=== PATIENT | female | born 1955 | race Caucasian/White ===

== ENCOUNTER 2023-11-19 12:53 | Outpatient (AMB) | payer MEDICARE, SELFPAY ==
--- NOTE | 2023-11-19 12:55 | A.OFFPC_ITS ---
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 Insurance Marketing Specialist Required: No Accompanied by: Self / Same As Patient Allergies atorvastatin [From Lipitor] Allergy (Severe, Verified 11/19/23 13:42) Stomach Upset cephalexin [From Keflex] Allergy (Severe, Verified 11/19/23 13:42) Anaphylaxis Penicillins Allergy (Severe, Verified 11/19/23 13:09) Anaphylaxis Gtcrimj-MOS-IyI Reductase Inhibitor Allergy (Severe, Verified 11/19/23 13:42) Agitated Medication List - Last Reconciled 11/19/23 by Lety Ha MD aspirin (Adult Aspirin Regimen) 81 mg PO DAILY cholecalciferol (vitamin D3) 25 mcg PO DAILY cholecalciferol (vitamin D3) 25 mcg PO DAILY levothyroxine 50 mcg PO DAILY 90 days Tobacco use date assessed: 11/19/23 Fall risk assessment: No Falls in past year Last assessed Fall Risk: 11/19/23 Dental Screening Dental Screen Date: 11/19/23 Did you have a dental visit in the last 12 months?: Yes Did you have a dental problem in the last 6 months where you did not have access to dental care?: No Was dental information given to patient?: Patient has dentist HPI HPI Comments History of Present Illness Details The patient is a 68-year-old female with a medical history of CAD status post STEMI, hypothyroid, ulcerative colitis, hyperlipidemia, arthritis presenting for follow-up Cardiovascular: CAD status post STEMI 2020. She follows with Cardiology, Dr. Jordan on. She stopped her Plavix and rosuvastatin April due to side effects of intense muscle pain and constipation. She had not tolerated a previous course of rosuvastatin and Lipitor. She is not willing to try another statin for Repatha. She is currently taking aspirin. Urologic: No interval kidney stones: Followed by Urology. They referred her to Nephrology. Kidney ultrasound and KUB. KUB showed enlarged liver without details renal ultrasound showed nonobstructing calculus. LFTs are normal. She has made dietary changes over the past few years. Hypothyroid: On levothyroxine 50 mcg daily MSK: She has improved upper mid and -she believes this was in six months. back pain after working with a chiropractor GI: Ulcerative colitis has been quiet. GERD: Takes generic pepcid or zantac prn She pursues mammogram every 2 years -says this was done within the past 2 years Declines colonoscopy ROS CONSTITUTIONAL: Denies weight loss, fever and chills. HEENT: Denies changes in vision and hearing. RESPIRATORY: Denies SOB and cough. CV: Denies palpitations and CP GI: Denies abdominal pain, nausea, vomiting and diarrhea. : Denies dysuria and urinary frequency. MSK: Denies new myalgia and joint pain. SKIN: Denies rash and pruritus. NEUROLOGICAL: Denies headache PSYCHIATRIC: Denies recent changes in mood. PHYSICAL EXAM: GENERAL: Alert and oriented x 3. NAD EYES: EOMI. Anicteric. HENT: Moist mucous membranes. No scleral icterus. No cervical lymphadenopathy. LUNGS: Clear to auscultation bilaterally. CARDIOVASCULAR: Regular rate and rhythm. No murmur. No JVD. ABDOMEN: Soft, non-tender +bs EXTREMITIES: No edema. Non-tender. SKIN: No rashes or lesions. Warm. NEUROLOGIC: No focal neurological deficits. CN II-XII grossly intact PSYCHIATRIC: Cooperative. Appropriate mood and affect [facility] Social History Household Members: Significant Other Housing: Apartment 75 years or older and lives alone: No Alcohol intake: current Alcohol intake frequency: holidays/special occasions only Patient Tobacco Use Status: Never used Tobacco e-Cigarette/Vaping Use: Never Used service: No Current occupational status: retired Cognitive needs: No Hearing needs: No Vision needs: No Questionnaire PHQ-9 Over the last 2 weeks, how often have you been bothered by any of the following problems? 1. Little interest or pleasure in doing things: not at all 2. Feeling down, depressed, or hopeless: not at all 3. Trouble falling or staying asleep, or sleeping too much: not at all 4. Feeling tired or having little energy: not at all 5. Poor appetite or overeating: not at all 6. Feeling bad about yourself - or that you are a failure or have let yourself or your family down: not at all 7. Trouble concentrating on things, such as reading the newspaper or watching television: not at all 8. Moving or speaking so slowly that other people could have noticed. Or the opposite - being so fidgety or restless that you have been moving around a lot more than usual: not at all 9. Thoughts that you would be better off or of hurting yourself in some way: not at all Total score: 0 Depression Screening Interpretation: Negative (neg) Depression Screening Done: Yes 18714 - PHQ-9 Billing: Yes Source: Developed by Drs. Gildardo Mora, Farideh Roberson, Rikki Sanchez and colleagues, with an educational darling from [employer]. Thrive Questionnaire Date Thrive assessed: 11/19/23 I am a: Patient What is your living situation today?: I have a steady place to live Within the past 12 months, did the food you bought not last and you didn't have the money to get more?: Never true Within the past 12 months, did you worry whether your food would run out before you got money to buy more?: Never true Do you have trouble paying for medicines?: No Do you have trouble getting transportation to medical appointments?: No Do you have trouble paying your heating and electricity bill?: No Do you have trouble taking care of your child, family member or friend?: No Do you have trouble with day-to-day activities such as bathing, preparing meals, shopping, managing finances, etc.?: No Are you currently unemployed and looking for a job?: No Are you interested in more education?: No Please select the resources that you would like help with: None Currently or been in a relationship where the following occur: No concerns reported THRIVE Score: 0 RAMIRO-7 AMB Questionnaire RAMIRO-7 Date RAMIRO - 7 assessed: 11/19/23 Feeling nervous, anxious, or on edge: 0 = Not at all Not being able to stop or control worryin = Not at all Worrying too much about different things: 0 = Not at all Trouble relaxin = Not at all Being so restless that it is hard to sit still: 0 = Not at all Becoming easily annoyed or irritable: 0 = Not at all Feeling afraid as if something awful might happen: 0 = Not at all Total RAMIRO-7 score (0-4 normal; 5-9 mild; 10-14 moderate; 15-21 severe): 0 Source: Developed by Drs. Gildardo Mora, Farideh Roberson, Rikki Sanchez and colleagues, with an educational darling from [employer]. RAMIRO-7 Assessment Billing RAMIRO-7 Assessment Tool: RAMIRO-7 Assessment 47270 Physical exam (Primary Care) Vital Signs: Last Vital Signs Pulse 66 11/19/23 13:03 BP 110/56 L 11/19/23 13:03 Pulse Ox 96 11/19/23 13:03 Oxygen Delivery Method Room Air 11/19/23 13:03 BMI result Body Mass Index 25.3 Tobacco/Smoking Status: Tobacco use Status Tobacco use date assessed 11/19/23 11/19/23 13:12 e-Cigarette/Vaping Use Never Used 11/19/23 13:12 Depression Screening Interpretation: Negative (neg) Currently or been in a relationship where the following occur: No concerns reported Assessment and Plan Assessment & Plan (1) CAD (coronary artery disease): Code(s): I25.10 - Atherosclerotic heart disease of [place] coronary artery without angina pectoris Qualifiers: Coronary Disease-Associated Artery/Lesion type: [place] artery [place] vs. transplanted heart: [place] heart Associated angina: without angina Qualified Code(s): I25.10 - Atherosclerotic heart disease of [place] coronary artery without angina pectoris Plan: Declines secondary preventive measures with the exception of ASA 81mg (2) History of ST elevation myocardial infarction (STEMI): Code(s): I25.2 - Old myocardial infarction (3) Hypothyroid: Code(s): E03.9 - Hypothyroidism, unspecified Qualifiers: Hypothyroidism type: due to Za's thyroiditis Qualified Code(s): E06.3 - Autoimmune thyroiditis Plan: Check TSH. Refills sent (4) Nephrolithiasis: Code(s): N20.0 - Calculus of kidney Plan: no interval issues. following kidney stone diet (5) DDD (degenerative disc disease), cervical: Code(s): M50.30 - Other cervical disc degeneration, unspecified cervical region Plan: stable. continue chiropractice care prn (6) DDD (degenerative disc disease), lumbar: Code(s): M51.36 - Other intervertebral disc degeneration, lumbar region (7) DDD (degenerative disc disease), thoracic: Code(s): M51.34 - Other intervertebral disc degeneration, thoracic region (8) Osteopenia: Code(s): M85.80 - Other specified disorders of bone density and structure, unspecified site Qualifiers: Osteopenia location: unspecified Qualified Code(s): M85.80 - Other specified disorders of bone density and structure, unspecified site Plan: continue vitamin D supplementation with adequate dietary calcium intake Orders: Orders TSH reflex Free T4 Today E03.9 - Hypothyroidism, unspecified Medications: New levothyroxine 50 mcg PO DAILY 90 days 90 tabs 3RF Coding Level of Care Code Est Pt Level 4 (20076) Complex EM visit Add On G2211 Diagnoses Coronary artery disease involving [place] coronary artery of [place] heart without angina pectoris I25.10 Coronary Disease-Associated Artery/Lesion type: [place] artery [place] vs. 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
[2023-11-19 13:03] VITALS: BP 110/56; PULSE 66; O2SAT 96; BMI 25.3
== END 2023-11-19 13:52 | disposition home or self-care (01) ==
PROVIDERS: PCP Internal Medicine; Visit Provider Internal Medicine
DX: I25.10 Atherosclerotic heart disease of native coronary artery without angina pectoris (principal); I25.2 Old myocardial infarction; E06.3 Autoimmune thyroiditis; N20.0 Calculus of kidney; M50.30 Other cervical disc degeneration, unspecified cervical region; M51.36 Other intervertebral disc degeneration, lumbar region; M51.34 Other intervertebral disc degeneration, thoracic region; M85.80 Other specified disorders of bone density and structure, unspecified site
CPT/HCPCS: 99214; G2211

== ENCOUNTER 2023-11-19 13:56 | Outpatient (REF) | payer MEDICARE, SELFPAY ==
[2023-11-19 18:07] LABS: TSH reflex Free T4 1.11 uIU/mL (0.32-4.0)
== END 2023-11-19 13:57 | disposition home or self-care (01) ==
LOC: HO.WFDLDS 13:56
PROVIDERS: Visit Provider Internal Medicine
DX: E03.9 Hypothyroidism, unspecified (principal)
CPT/HCPCS: 36415; 84443

== ENCOUNTER 2024-05-30 08:09 | Outpatient (AMB) | payer MEDICARE, SELFPAY ==
--- OUTSIDE RECORDS SUMMARY | 2024-05-30 08:12 | XMS_ITS | Clinical Summary ---
Author Organization [facility] Address [address] [place] [address] Care Team Providers Care Assembly Line Worker Name Role Phone Unavailable Primary Care Provider Unavailabl e Allergies Active Allergy Reactions Criticality Noted Date Comments Penicillins 01/25/2017 Medications No known medications Active Problems Problem Noted Date Diagnosed Date Chronic left-sided low back pain without sciatic a 05/03/2017 Chronic thoracic back pain 05/03/2017 Neck pain 05/03/2017 Family History Medical History Relation Name Comments Hypertension Mother Relation Name Status Comments Mother Social History Tobacco Use Types Packs/Day Years Used Date Smoking Tobacco: Never Smokeless Tobacco: Never Tobacco Cessation:Counseling Given: No Sex and Gender Information Value Date Recorded Sex Assigned at Not on file Gender Identity Not on file Sexual Orientation Not on file Last Filed Vital Signs Vital Sign Reading Time Taken Comments Blood Pressure - - Pulse - - Temperature - - Respiratory Rate - - Oxygen Saturation - - Inhaled Oxygen Concentration - - Weight 65.8 kg (145 lb) 05/03/2017 3:52 PM EST Height 156.2 cm (5' 1.5 ) 05/03/2017 3:52 PM EST Body Mass Index 26.95 05/03/2017 3:52 PM EST Plan of Treatment Health Maintenance Due Date Last Done Comments Hepatitis C Screening 1955 COVID-19 Vaccine (#1) 03/23/1956 Depression Screening 1968 Preventative Health Evaluation 1974 DTap / Tdap / Td (1 - Tdap) 09/21/1975 Colon Cancer Screening (Colonoscopy) 2001 Breast Cancer Screening (Mammogram) 2006 Shingrix-Zoster Vaccine (1 of 2) 2006 Fall Risk Assessment 2021 Osteoporosis Screening (DEXA Scan) 2021 Pneumococcal Vaccine (1 of 1 - PCV) 2021 Influenza Vaccine (#1) 2023 RSV Adult > 60+ Yrs or Pregn ant (1 - 1-dose 75+ series) 09/21/2031 Hepatitis B Vaccines Aged Out No long er eligible based on patient's age to complete this topic RSV Ped < 20 months Aged Out No longe r eligible based on patient's age to complete this topic Insurance Payer Benefit Plan / Group Subscriber ID Effective Dates Phone Address Type WORKER'S COMP WORKER COMP MISC [id number] 2018-Pres ent [address] [address] [place] [address] Indemnity AETNA AETNA PPO [id number] 2016-Presen t [address] [place] [id number] PPO Nettie Gutierrez Personal/Family Self [address] [place] [id number] Nettie Gutierrez Workers Comp Self [address] [place] [id number]
--- OUTSIDE RECORDS SUMMARY | 2024-05-30 08:12 | XMS_ITS | Clinical Summary ---
Author Organization [facility], Address [address] [place] [address] Phone Care Team Providers Care Tombstone Erector Name Role Phone Lety Ha MD Primary Care Provider [phone] Allergies Active Allergy Reactions Criticality Noted Date Comments Atorvastatin 11/20/2021 Cephalexin 11/20/2021 Penicillins 01/25/2017 Statins 11/20/2021 Medications levothyroxine (SYNTHROID, LEVOTHROID) 50 MCG tablet Take 50 mcg by mouth 1 (one) time each day For 90 days 09/08/2021 Active Cholecalciferol (VITAMIN D3 PO) Take by mouth Active aspirin (ST RICHARD) 81 MG EC tablet Take 81 mg by mouth 1 (one) time each day Active clopidogrel (PLAVIX) 75 MG tablet Take 75 mg by mouth 1 (one) time each day Active Active Problems Problem Noted Date Diagnosed Date Personal history of kidney stones 11/20/2021 Anemia 11/20/2021 Renal stone 11/20/2021 Social History Tobacco Use Types Packs/Day Years Used Date Smoking Tobacco: Never Assessed Comments Unknown Sex and Gender Information Value Date Recorded Sex Assigned at Not on file Legal Sex Female 3:04 PM EDT Gender Identity Not on file Sexual Orientation Not on file Plan of Treatment Health Maintenance Due Date Last Done Comments Breast Cancer Screening 1955 Colorectal Cancer Screening: Annual FOBT 2005 Colorectal Cancer Screening: Colonoscopy 2005 Colorectal Cancer Screening: Sigmoidoscopy 2005 Pneumococcal Vaccine: 65+ Ye ars (1 of 1 - PCV) 2021 Influenza Vaccine (#1) 2023 Hepatitis B Vaccine Aged Out No longe r eligible based on patient's age to complete this topic Insurance AETNA Care Teams Tombstone Erector Relationship Specialty Start Date End Date Lety Ha MD [address] [place] [id number] PCP - General Internal Medicine 10/06/21
--- NOTE | 2024-05-30 08:38 | A.OFFPC_ITS ---
Vital Signs 05/30/24 08:42 Height 5 ft 1.25 in Weight 139 lb 6 oz BMI 26.1 BP 102/70 Blood Pressure Location Rt brachial Position Sitting Respiration 14 Pulse 84 Pulse Source Pulse Oximeter Pulse Oximetry (%) 97 Oxygen Delivery Method Room Air Intake Visit Reasons: physical exam Intake Note: Physical. Taking heart burn medication, but does not recall the name. Yarn Weight And Strength Tester Required: No Allergies atorvastatin [From Lipitor] Allergy (Severe, Verified 05/30/24 08:38) Stomach Upset cephalexin [From Keflex] Allergy (Severe, Verified 05/30/24 08:38) Anaphylaxis Penicillins Allergy (Severe, Verified 05/30/24 08:38) Anaphylaxis Zhdznom-YRG-LvC Reductase Inhibitor Allergy (Severe, Verified 05/30/24 08:38) Agitated Tobacco use date assessed: 11/19/23 Fall risk assessment: No Falls in past year Last assessed Fall Risk: 05/30/24 Dental Screening Dental Screen Date: 11/19/23 HPI HPI Comments History of Present Illness Details The patient is a 68-year-old female with a medical history of CAD status post STEMI, hypothyroid, ulcerative colitis, hyperlipidemia, arthritis presenting for physical exam Cardiovascular: CAD status post STEMI 2020. She follows with Cardiology, Dr. Fuentes She stopped her Plavix and rosuvastatin April due to side effects of intense muscle pain and constipation. She had not tolerated a previous course of rosuvastatin and Lipitor. She is not willing to try another statin for Repatha. She is currently taking aspirin. Urologic: No interval kidney stones: Followed by Urology. They referred her to Nephrology. Kidney ultrasound and KUB. KUB showed enlarged liver without details renal ultrasound showed nonobstructing calculus. LFTs are normal. She has made dietary changes over the past few years. Has upcoming appt with them Hypothyroid: On levothyroxine 88mcg daily, this was increased from. levothyroxine 50 mcg daily MSK: She has improved upper mid back pain-working with chiropractor. Moderate thoracic DDD on xray. They want her to have bone density testing GI: Ulcerative colitis has been quiet. GERD: Takes generic pepcid or zantac prn She pursues mammogram every 2 years -says she is due and has been called Declines colonoscopy ROS CONSTITUTIONAL: Denies weight loss, fever and chills. HEENT: Denies changes in vision and hearing. RESPIRATORY: Denies SOB and cough. CV: Denies palpitations and CP GI: Denies abdominal pain, nausea, vomiting and diarrhea. : Denies dysuria and urinary frequency. MSK: Denies new myalgia and joint pain. SKIN: Denies rash and pruritus. NEUROLOGICAL: Denies headache PSYCHIATRIC: Denies recent changes in mood. PHYSICAL EXAM: GENERAL: Alert and oriented x 3. NAD EYES: EOMI. Anicteric. HENT: Moist mucous membranes. No scleral icterus. No cervical lymphadenopathy. LUNGS: Clear to auscultation bilaterally. CARDIOVASCULAR: Regular rate and rhythm. No murmur. No JVD. ABDOMEN: Soft, non-tender +bs EXTREMITIES: No edema. Non-tender. SKIN: No rashes or lesions. Warm. NEUROLOGIC: No focal neurological deficits. CN II-XII grossly intact PSYCHIATRIC: Cooperative. Appropriate mood and affect [facility] Social History Household Members: Significant Other Housing: Apartment 75 years or older and lives alone: No Alcohol intake: current Alcohol intake frequency: holidays/special occasions only Patient Tobacco Use Status: Never used Tobacco e-Cigarette/Vaping Use: Never Used Second Hand Smoke Exposure: No service: No Current occupational status: retired Cognitive needs: No Hearing needs: No Vision needs: No Questionnaire Thrive Questionnaire Date Thrive assessed: 11/19/23 I am a: Patient What is your living situation today?: I choose not to answer this question Within the past 12 months, did the food you bought not last and you didn't have the money to get more?: I choose not to answer this question Within the past 12 months, did you worry whether your food would run out before you got money to buy more?: I choose not to answer this question Do you have trouble paying for medicines?: I choose not to answer this question Do you have trouble getting transportation to medical appointments?: I choose not to answer this question Do you have trouble paying your heating and electricity bill?: I choose not to answer this question Do you have trouble taking care of your child, family member or friend?: I choose not to answer this question Do you have trouble with day-to-day activities such as bathing, preparing meals, shopping, managing finances, etc.?: I choose not to answer this question Are you currently unemployed and looking for a job?: I choose not to answer this question Are you interested in more education?: I choose not to answer this question Please select the resources that you would like help with: None Currently or been in a relationship where the following occur: I choose not to answer THRIVE Score: 0 AUDIT C Alcohol Use Questionnaire (AUDIT-C) 1. How often do you have a drink containing alcohol?: Never Total Score: 0 RAMIRO-7 AMB Questionnaire RAMIRO-7 Date RAMIRO - 7 assessed: 05/30/24 Feeling nervous, anxious, or on edge: 0 = Not at all Not being able to stop or control worryin = Not at all Worrying too much about different things: 0 = Not at all Trouble relaxin = Not at all Being so restless that it is hard to sit still: 0 = Not at all Becoming easily annoyed or irritable: 0 = Not at all Feeling afraid as if something awful might happen: 0 = Not at all Total RAMIRO-7 score (0-4 normal; 5-9 mild; 10-14 moderate; 15-21 severe): 0 Source: Developed by Drs. Gildardo Mora, Farideh Roberson, Rikki Sanchez and colleagues, with an educational darling from [employer]. Physical exam (Primary Care) Vital Signs: Last Vital Signs Pulse 84 05/30/24 08:42 Resp 14 05/30/24 08:42 BP 102/70 05/30/24 08:42 Pulse Ox 97 05/30/24 08:42 Oxygen Delivery Method Room Air 05/30/24 08:42 BMI result Body Mass Index 26.1 Tobacco/Smoking Status: Tobacco use Status Tobacco use date assessed 11/19/23 05/30/24 08:44 Patient Tobacco Use Status Never used Tobacco 05/30/24 08:44 e-Cigarette/Vaping Use Never Used 05/30/24 08:44 Thrive Assessment: Date of Thrive Assessment Date Thrive assessed 11/19/23 05/30/24 08:44 Currently or been in a relationship where the following occur: I choose not to answer Coding Level of Care Code Est Pt Prev Care >65y(03487) Diagnoses Physical exam Z00.00 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 Declines colonoscopy. Says she will schedule her mammogram (2) Hypothyroid: Code(s): E03.9 - Hypothyroidism, unspecified Category: Medical Qualifiers: Hypothyroidism type: due to Za's thyroiditis Qualified Code(s): E06.3 - Autoimmune thyroiditis Plan: stable. check labs (3) DDD (degenerative disc disease), thoracic: Code(s): M51.34 - Other intervertebral disc degeneration, thoracic region Category: Medical Plan: bone density june. continue f/up chiropractor Orders: Orders Comprehensive Met. Panel Today E06.3 - Autoimmune thyroiditis, I25.2 - Old myocardial infarction, Z13.0 - Encounter for screening for diseases of the blood and blood-forming organs and certain disorders involving the immune mechanism Lipid Panel Today E06.3 - Autoimmune thyroiditis, I25.2 - Old myocardial infarction, Z13.0 - Encounter for screening for diseases of the blood and blood- forming organs and certain disorders involving the immune mechanism TSH reflex Free T4 Today E06.3 - Autoimmune thyroiditis, I25.2 - Old myocardial infarction, Z13.0 - Encounter for screening for diseases of the blood and blood- forming organs and certain disorders involving the immune mechanism Complete Blood Count Auto Diff Today E06.3 - Autoimmune thyroiditis, I25.2 - Old myocardial infarction, Z13.0 - Encounter for screening for diseases of the blood and blood-forming organs and certain disorders involving the immune mechanism Referrals Cologuard Test Z12.11 - Encounter for screening for malignant neoplasm of colon, Z12.12 - Encounter for screening for malignant neoplasm of rectum
[2024-05-30 08:42] VITALS: BP 102/70; PULSE 84; RESP 14; O2SAT 97; BMI 26.1
== END 2024-05-30 09:05 | disposition home or self-care (01) ==
PROVIDERS: PCP Internal Medicine; Visit Provider Internal Medicine
DX: Z00.00 Encounter for general adult medical examination without abnormal findings (principal); E06.3 Autoimmune thyroiditis; M51.34 Other intervertebral disc degeneration, thoracic region

== ENCOUNTER 2024-05-30 09:26 | Outpatient (REF) | payer MEDICARE, SELFPAY ==
--- OUTSIDE RECORDS SUMMARY | 2024-05-30 09:56 | XMS_ITS | Clinical Summary ---
Author Organization [facility], Address [address] [place] [address] Phone Care Team Providers Care Gang Tailer Name Role Phone Lety Ha MD Primary Care Provider [phone] Allergies Active Allergy Reactions Criticality Noted Date [...] complete this topic Insurance [employer] Care Teams Gang Tailer Relationship Specialty Start Date End Date Lety Ha MD [address] [place] [id number] PCP - General Internal Medicine 10/06/21
--- OUTSIDE RECORDS SUMMARY | 2024-05-30 09:56 | XMS_ITS | Clinical Summary ---
Author Organization [facility] Address [address] [place] [address] Care Team Providers Care Concrete Tile Machine Operator Name Role Phone Unavailable Primary Care Provider [...] on patient's age to complete this topic Nettie Gutierrez Personal/Family Self [address] [place] [id number] Nettie Gutierrez Workers Comp Self [address] [place] [id number]
[2024-05-30 11:21] LABS: MANUAL DIFF FLAG NO
[2024-05-30 11:37] LABS: Basophils Percent Auto 0.7 % (0-2); Eosinophils Absolute Auto 0.2 X10*3/uL (0.0-0.4); Eosinophils Percent Auto 4.8 % (0-4); Hematocrit 39.6 % (37.0-47.0); Hemoglobin 12.8 g/dl (12.0-16.0); Imm Gran Abs Auto 0.01 X10*3/uL (0.00-0.03); Imm Gran Pct Auto 0.2 % (0.0-0.4); Lymphocytes Absolute Auto 1.8 X10*3/uL (1.2-4.9); Lymphocytes Percent Auto 40.1 % (20-40); Mean Corpuscular HGB Conc 32.3 g/dl (31.0-35.0); Mean Platelet Volume 11.4 fL (9.4-12.3); Monocytes Absolute Auto 0.4 X10*3/uL (0.1-1.2); Monocytes Percent Auto 8.6 % (2-11); Neutrophils Percent Auto 45.6 % (45-73); Platelet Count 220 X10*3/uL (160-400); Red Blood Count 4.26 X10*6/uL (4.20-5.50); White Blood Count 4.4 X10*3/uL (4.8-10.8)
[2024-05-30 12:02] LABS: Alanine Aminotransferase 20 U/L (0-31); Albumin Level 4.1 g/dL (3.5-5.0); Alkaline Phosphatase 57 U/L (39-117); Anion Gap 15 (12-20); Aspartate Amino Transferase 26 U/L (5-31); Bilirubin Total 0.4 mg/dL (0.0-1.0); Blood Urea Nitrogen 23 mg/dL (9-16); Calcium 9.7 mg/dL (8.4-10.2); Carbon Dioxide 28 mmol/L (22-29); Chloride 106 mmol/L (96-108); Cholesterol 230 mg/dL (<200); Estimated Glomerular Filt Rate > 60; Glucose Random 80 mg/dL (60-115); HDL Cholesterol 54 mg/dL (>40); LDL Cholesterol Calculated 155 mg/dL (<100); Potassium 4.2 mmol/L (3.3-5.1); Sodium 145 mmol/L (135-145); Total Protein 7.3 g/dL (6.5-8.0); Triglycerides 108 mg/dL (<150)
[2024-05-30 12:20] LABS: TSH reflex Free T4 0.96 uIU/mL (0.32-4.0)
== END 2024-05-30 09:27 | disposition home or self-care (01) ==
LOC: HO.WFDLDS 09:26
PROVIDERS: Visit Provider Internal Medicine
DX: Z00.00 Encounter for general adult medical examination without abnormal findings (principal); E06.3 Autoimmune thyroiditis; M51.34 Other intervertebral disc degeneration, thoracic region; I25.2 Old myocardial infarction; Z79.82 Long term (current) use of aspirin; Z79.899 Other long term (current) drug therapy; Z13.0 Encounter for screening for diseases of the blood and blood-forming organs and certain disorders involving the immune mechanism
CPT/HCPCS: 36415; 80053; 80061; 84443; 85025; 99397

== ENCOUNTER 2024-07-17 15:29 | Outpatient (AMB) | payer MEDICARE, SELFPAY ==
--- NOTE | 2024-07-17 16:15 | A.OFFPC_ITS ---
Intake Visit Reasons: Discuss dexa, anemia, cologuard result. Allergies atorvastatin [From Lipitor] Allergy (Severe, Verified 05/30/24 08:38) Stomach Upset cephalexin [From Keflex] Allergy (Severe, Verified 05/30/24 08:38) Anaphylaxis Penicillins Allergy (Severe, Verified 05/30/24 08:38) Anaphylaxis Wbsnwdu-TMP-UoN Reductase Inhibitor Allergy (Severe, Verified 05/30/24 08:38) Agitated Tobacco use date assessed: 11/19/23 Dental Screening Dental Screen Date: 11/19/23 HPI HPI Comments History of Present Illness Details The patient is a 68-year-old female with a medical history of CAD status post STEMI, hypothyroid, ulcerative colitis, hyperlipidemia, arthritis presenting for follow up Recent cologuard test (+). She was referred to and is scheduled for colonoscopy in October [id number] with chiropractor and wants results faxed Cardiovascular: CAD status post STEMI 2020. She follows with Cardiology, Dr. Fuentes She stopped her Plavix and rosuvastatin April due to side effects of intense muscle pain and constipation. She had not tolerated a previous course of rosuvastatin and Lipitor. She is not willing to try another statin for Repatha. She is currently taking aspirin. Urologic: No interval kidney stones: Followed by Urology. They referred her to Nephrology. Kidney ultrasound and KUB. KUB showed enlarged liver without details renal ultrasound showed nonobstructing calculus. LFTs are normal. She has made dietary changes over the past few years. Hypothyroid: On levothyroxine 88mcg daily, this was increased from. levothyroxine 50 mcg daily MSK: She has improved upper mid back pain-working with chiropractor. Moderate thoracic DDD on xray. osteopenia as above GI: Ulcerative colitis has been quiet. GERD: Takes generic pepcid or zantac prn She pursues mammogram every 2 years -says she is due and has been called Had declined colonoscopy until positive cologuard ROS CONSTITUTIONAL: Denies weight loss, fever and chills. HEENT: Denies changes in vision and hearing. RESPIRATORY: Denies SOB and cough. CV: Denies palpitations and CP GI: Denies abdominal pain, nausea, vomiting and diarrhea. : Denies dysuria and urinary frequency. MSK: Denies new myalgia and joint pain. SKIN: Denies rash and pruritus. NEUROLOGICAL: Denies headache PSYCHIATRIC: Denies recent changes in mood. PHYSICAL EXAM: Telehealth [facility] Social History Household Members: Significant Other Housing: Apartment 75 years or older and lives alone: No Alcohol intake: current Alcohol intake frequency: holidays/special occasions only Patient Tobacco Use Status: Never used Tobacco e-Cigarette/Vaping Use: Never Used Second Hand Smoke Exposure: No service: No Current occupational status: retired Cognitive needs: No Hearing needs: No Vision needs: No Questionnaire Thrive Questionnaire Date Thrive assessed: 11/19/23 RAMIRO-7 AMB Questionnaire RAMIRO-7 Date RAMIRO - 7 assessed: 05/30/24 Source: Developed by Drs. Gildardo Mora, Farideh Roberson, Rikki Sanchez and colleagues, with an educational darling from [employer]. Physical exam (Primary Care) Tobacco/Smoking Status: Tobacco use Status Tobacco use date assessed 11/19/23 07/17/24 16:15 Patient Tobacco Use Status Never used Tobacco 07/17/24 16:15 e-Cigarette/Vaping Use Never Used 07/17/24 16:15 Thrive Assessment: Date of Thrive Assessment Date Thrive assessed 11/19/23 07/17/24 16:15 Telehealth Telehealth Telehealth Platform: [facility] Location of provider rendering services: practice address Location of patient: address on file Patient Identification confirmed using: Name, : Yes Telehealth method: voice only Patient verbally consented to treatment: Yes Patient verbally consented to billing insurance company: Yes Patient informed of any privacy concerns related to visit: Yes Minutes spent on Phone/Video with Pt.: 32 Coding Level of Care Code Tele Est Pt Level 4 (21766) Diagnoses Positive colorectal cancer screening using Cologuard test R19.5 Ulcerative colitis without complications, unspecified location K51.90 Digestive disease complication type: without complication Ulcerative colitis location: unspecified ulcerative colitis location Osteopenia, unspecified location M85.80 Osteopenia location: unspecified Assessment & Plan Assessment & Plan (1) Positive colorectal cancer screening using Cologuard test: Code(s): R19.5 - Other fecal abnormalities Category: Medical (2) Ulcerative colitis: Code(s): K51.90 - Ulcerative colitis, unspecified, without complications Category: Medical Qualifiers: Digestive disease complication type: without complication Ulcerative colitis location: unspecified ulcerative colitis location Qualified Code(s): K51.90 - Ulcerative colitis, unspecified, without complications (3) Osteopenia: Code(s): M85.80 - Other specified disorders of bone density and structure, unspecified site Category: Medical Qualifiers: Osteopenia location: unspecified Qualified Code(s): M85.80 - Other specified disorders of bone density and structure, unspecified site Plan 68 year old for follow up Reviewed positive cologuard results, bone density testing She has referral pending to gastroenterology
== END 2024-07-17 16:16 | disposition home or self-care (01) ==
LOC: HO.HMCFM 15:29
PROVIDERS: PCP Internal Medicine; Visit Provider Internal Medicine
DX: K51.90 Ulcerative colitis, unspecified, without complications (principal); R19.5 Other fecal abnormalities; M85.80 Other specified disorders of bone density and structure, unspecified site

== ENCOUNTER → 2024-07-17 15:29 | Outpatient (BNVA) | payer MEDICARE, SELFPAY | PROVIDERS: PCP Internal Medicine; Visit Provider Internal Medicine ==

== ENCOUNTER 2024-07-31 15:08 | Outpatient (AMB) | payer MEDICARE, SELFPAY ==
--- NOTE | 2024-07-31 15:59 | A.OFFPC_ITS ---
Vital Signs 07/31/24 16:03 BMI Reason not done Patient refused/unable BP 112/72 Blood Pressure Location Rt brachial Position Sitting Respiration 12 Pulse 101 H Pulse Source Pulse Oximeter Pulse Oximetry (%) 97 Oxygen Delivery Method Room Air Intake Visit Reasons: ED Follow-up [facility] Intake Note: Emergency room follow up Technical Buyer Required: No Allergies atorvastatin [From Lipitor] Allergy (Severe, Verified 07/31/24 16:00) Stomach Upset cephalexin [From Keflex] Allergy (Severe, Verified 07/31/24 16:00) Anaphylaxis Penicillins Allergy (Severe, Verified 07/31/24 16:00) Anaphylaxis Knfyvwe-CNR-MnC Reductase Inhibitor Allergy (Severe, Verified 07/31/24 16:00) Agitated Tobacco use date assessed: 07/31/24 Fall risk assessment: No Falls in past year Last assessed Fall Risk: 07/31/24 Dental Screening Dental Screen Date: 11/19/23 HPI HPI Comments History of Present Illness Details The patient is a 68-year-old female with a medical history of CAD status post STEMI, hypothyroid, ulcerative colitis, hyperlipidemia, arthritis presenting for follow up July 23 left ankle injury. Twisted it on a friends steps. Seen in [facility]. xray c/w distal left fibular fracture Wednesday appt with repeat xray Saw and has another appt with orthopedics at [facility] Pain is adeduately controlled with tylenol She is having trouble getting up and down her stairs. Only bathroom is on the second floor Recent cologuard test (+). She was referred to and is scheduled for colonoscopy in October [id number] with chiropractor and wants results faxed Cardiovascular: CAD status post STEMI 2020. She follows with Cardiology, Dr. Fuentes She stopped her Plavix and rosuvastatin April due to side effects of intense muscle pain and constipation. She had not tolerated a previous course of rosuvastatin and Lipitor. She is not willing to try another statin for Repatha. She is currently taking aspirin. Urologic: No interval kidney stones: Followed by Urology. They referred her to Nephrology. Kidney ultrasound and KUB. KUB showed enlarged liver without details renal ultrasound showed nonobstructing calculus. LFTs are normal. She has made dietary changes over the past few years. Hypothyroid: On levothyroxine 88mcg daily, this was increased from. levothyroxine 50 mcg daily MSK: She has improved upper mid back pain-working with chiropractor. Moderate thoracic DDD on xray. osteopenia as above GI: Ulcerative colitis has been quiet. GERD: Takes generic pepcid or zantac prn She pursues mammogram every 2 years -says she is due and has been called Had declined colonoscopy until positive cologuard ROS CONSTITUTIONAL: Denies weight loss, fever and chills. HEENT: Denies changes in vision and hearing. RESPIRATORY: Denies SOB and cough. CV: Denies palpitations and CP GI: Denies abdominal pain, nausea, vomiting and diarrhea. : Denies dysuria and urinary frequency. MSK: Denies new myalgia and joint pain. SKIN: Denies rash and pruritus. NEUROLOGICAL: Denies headache PSYCHIATRIC: Denies recent changes in mood. PHYSICAL EXAM: GENERAL: Alert and oriented x 3. NAD EYES: EOMI. Anicteric. HENT: Moist mucous membranes. No scleral icterus. No cervical lymphadenopathy. LUNGS: Clear to auscultation bilaterally. CARDIOVASCULAR: Regular rate and rhythm. No murmur. No JVD. ABDOMEN: Soft, non-tender +bs EXTREMITIES: Left lower leg casted SKIN: No rashes or lesions. Warm. NEUROLOGIC: No focal neurological deficits. CN II-XII grossly intact PSYCHIATRIC: Cooperative. Appropriate mood and affect [facility] Social History Household Members: Significant Other Housing: Apartment 75 years or older and lives alone: No Alcohol intake: current Alcohol intake frequency: holidays/special occasions only Patient Tobacco Use Status: Never used Tobacco e-Cigarette/Vaping Use: Never Used Second Hand Smoke Exposure: No service: No Current occupational status: retired Cognitive needs: No Hearing needs: No Vision needs: No Questionnaire PHQ-9 Over the last 2 weeks, how often have you been bothered by any of the following problems? 1. Little interest or pleasure in doing things: not at all 2. Feeling down, depressed, or hopeless: not at all 4. Feeling tired or having little energy: not at all 5. Poor appetite or overeating: not at all 6. Feeling bad about yourself - or that you are a failure or have let yourself or your family down: not at all 7. Trouble concentrating on things, such as reading the newspaper or watching television: not at all 8. Moving or speaking so slowly that other people could have noticed. Or the opposite - being so fidgety or restless that you have been moving around a lot more than usual: not at all 9. Thoughts that you would be better off or of hurting yourself in some way: not at all Source: Developed by Drs. Gildardo Mora, Farideh Roberson, Rikki Sanchez and colleagues, with an educational darling from [employer]. Thrive Questionnaire Date Thrive assessed: 05/30/24 I am a: Patient What is your living situation today?: I choose not to answer this question Within the past 12 months, did the food you bought not last and you didn't have the money to get more?: I choose not to answer this question Within the past 12 months, did you worry whether your food would run out before you got money to buy more?: I choose not to answer this question Do you have trouble paying for medicines?: I choose not to answer this question Do you have trouble getting transportation to medical appointments?: I choose not to answer this question Do you have trouble paying your heating and electricity bill?: I choose not to answer this question Do you have trouble taking care of your child, family member or friend?: I choose not to answer this question Do you have trouble with day-to-day activities such as bathing, preparing meals, shopping, managing finances, etc.?: I choose not to answer this question Are you currently unemployed and looking for a job?: I choose not to answer this question Are you interested in more education?: I choose not to answer this question Please select the resources that you would like help with: None Currently or been in a relationship where the following occur: I choose not to answer THRIVE Score: 0 AUDIT C Alcohol Use Questionnaire (AUDIT-C) 1. How often do you have a drink containing alcohol?: Never 3. How often do you have six or more drinks on one occasion?: Never Total Score: 0 RAMIRO-7 AMB Questionnaire RAMIRO-7 Date RAMIRO - 7 assessed: 05/30/24 Source: Developed by Drs. Gildardo Mora, Farideh Roberson, Rikki Sanchez and colleagues, with an educational darling from [employer]. Physical exam (Primary Care) Vital Signs: Last Vital Signs Pulse 101 H 07/31/24 16:03 Resp 12 07/31/24 16:03 BP 112/72 07/31/24 16:03 Pulse Ox 97 07/31/24 16:03 Oxygen Delivery Method Room Air 07/31/24 16:03 Tobacco/Smoking Status: Tobacco use Status Tobacco use date assessed 07/31/24 07/31/24 16:07 Patient Tobacco Use Status Never used Tobacco 07/31/24 16:02 e-Cigarette/Vaping Use Never Used 07/31/24 16:02 Thrive Assessment: Date of Thrive Assessment Date Thrive assessed 05/30/24 07/31/24 16:02 Currently or been in a relationship where the following occur: I choose not to answer Coding Level of Care Code Est Pt Level 4 (10017) Diagnoses Closed fracture of distal end of left fibula with routine healing, unspecified fracture morphology, subsequent encounter S82.832D Encounter type: subsequent encounter Fibula location: distal Fracture healing: with routine healing Fracture morphology: unspecified fracture morphology Assessment & Plan Assessment & Plan (1) Closed left fibular fracture: Code(s): S82.402A - Unspecified fracture of shaft of left fibula, initial encounter for closed fracture Category: Medical Qualifiers: Encounter type: subsequent encounter Fibula location: distal Fracture healing: with routine healing Fracture morphology: unspecified fracture morphology Qualified Code(s): S82.832D - Other fracture of upper and lower end of left fibula, subsequent encounter for closed fracture with routine healing Plan: ER course radiology reviewed Has appropriate follow up with orthopedics Pain is adequately controlled Orders: Referrals Orthopedics Referral S82.402A - Unspecified fracture of shaft of left fibula, initial encounter for closed fracture
[2024-07-31 16:03] VITALS: BP 112/72; PULSE 101; RESP 12; O2SAT 97
--- OUTSIDE RECORDS SUMMARY | 2024-07-31 17:58 | XMS_ITS | Clinical Summary ---
Author Organization [facility] Address [address] [place] [address] Care Team Providers Care Business Process Modeler Name Role Phone Unavailable Primary Care Provider [...] Nettie Gutierrez Personal/Family Self [address] [place] [id number] Nettie Gutierrez Workers Comp Self 1955 [address] [place] [address]
--- OUTSIDE RECORDS SUMMARY | 2024-07-31 17:58 | XMS_ITS | Clinical Summary ---
Author Organization [facility], Address [address] [place] [address] Phone Care Team Providers Care Commissioning Specialist Name Role Phone Lety Ha MD Primary Care Provider [phone] Allergies Active Allergy Reactions Criticality Noted Date [...] of 1 - PCV) 2021 Influenza Vaccine (Season Ended) 2024 Hepatitis B Vaccine Aged Out No longe r eligible based on patient's age to complete this topic Insurance [facility] [facility] Address: [address] [address] Care Teams Commissioning Specialist Relationship Specialty Start Date End Date Lety Ha MD [address] [place] [id number] PCP - General Internal Medicine 10/06/21
== END 2024-07-31 16:43 | disposition home or self-care (01) ==
LOC: HO.HMCFM 15:09
PROVIDERS: PCP Internal Medicine; Visit Provider Internal Medicine
DX: S82.832D Other fracture of upper and lower end of left fibula, subsequent encounter for closed fracture with routine healing (principal)

== ENCOUNTER → 2024-07-31 15:08 | Outpatient (BNVA) | payer MEDICARE, SELFPAY | PROVIDERS: PCP Internal Medicine; Visit Provider Internal Medicine | DX: I25.10 Atherosclerotic heart disease of native coronary artery without angina pectoris (principal); I25.2 Old myocardial infarction; E03.9 Hypothyroidism, unspecified; E78.5 Hyperlipidemia, unspecified; S82.832D Other fracture of upper and lower end of left fibula, subsequent encounter for closed fracture with routine healing; X58.XXXD Exposure to other specified factors, subsequent encounter | CPT/HCPCS: 99212 ==